=== PATIENT | male | born 1945 | race African-American/Black ===

== ENCOUNTER 2023-07-14 09:04 | Inpatient (IN) | payer BC, MEDICARE, OTHER ==
[2023-07-14 09:49] LABS: #Monocytes 0.3 thou/uL (0.11-0.59); #Neutrophils 2.9 thou/uL (1.40-6.50); %Basophils 0.2 % (0.0-1.0); %Eosinophils 0.2 % (0.0-10.0); %Lymphocytes 21.4 % (21.0-51.0); %Monocytes 7.7 % (0.0-10.0); %Neutrophils 70.3 % (42.0-75.0); Hematocrit 38.6 % (42.0-52.0); Mean Corpuscular HGB CONC 33.7 g/dL (32.0-36.0); Mean Corpuscular Hemoglobin 32.8 pg (27.0-31.0); Mean Corpuscular Volume 97.5 fl (78.0-98.0); Platelet Count 227 10x3/uL (130-400); RBC Distribution Width 12.2 % (11.5-14.5); Red Blood Cell (RBC) Count 3.96 mill/uL (4.70-6.10); White Blood Cell (WBC) Count 4.2 10x3/uL (4.8-10.8)
[2023-07-14 10:07] LABS: Bacteria/HPF None Seen HPF (None Seen); Bilirubin Negative (Negative); Blood, Urine Negative (Negative); CAUTI Indications for Culture Alt mental st,lethar; Clarity Clear (Clear); Glucose, Urine (Dipstick) Greater than 1000 mg/dL (Negative); Ketone, Urine 10 mg/dL (Negative); Leukocyte Negative Leu/uL (Negative); Nitrite Negative (Negative); Protein, Urine (Dipstick) Negative (Neg-Trace); RBC/HPF None Seen HPF (0-3); Specific Gravity, Urine 1.033 (1.002-1.036); Squamous Epithelial None Seen HPF (0-3); Urobilinogen Normal mg/dL (Less than 2); WBC/HPF 0-3 HPF (0-3); pH, Urine 6.5 (5.0-9.0)
[2023-07-14 10:08] LABS: Urine Culture Reflex No No
[2023-07-14 10:18] LABS: ALT (SGPT) 24 U/L (8-55); AST (SGOT) 22 U/L (5-34); Albumin 4.4 g/dL (3.4-4.8); Alkaline Phosphatase 93 U/L (40-110); Anion Gap 16 mmol/L (10-20); BUN (Urea Nitrogen) 23 mg/dL (8.4-25.7); Bilirubin, Total 0.8 mg/dL (0.2-1.2); Calc. Creatinine Clearance 0 mL/min (70-130); Calcium 9.4 mg/dL (7.8-10.44); Carbon Dioxide 25 mmol/L (23-31); Chloride 96 mmol/L (98-107); Estimated GFR 49; Globulin 2.6 g/dL (2.4-3.5); Potassium 4.9 mmol/L (3.5-5.1); Sodium 132 mmol/L (136-145); Troponin I 0.078 ng/mL (< 0.028)
[2023-07-14 10:25] LABS: Glucose 678 mg/dL (83-110)
[2023-07-14 10:33] LABS: Analyzer IN Cardio ER; Calcium, Ionized (venous) 1.18 mmol/L (1.16-1.32); Chloride (VBG) 95 mmol/L (98-106); Hematocrit-VBG 42 % (42.0-52.0); Hemoglobin (Hb) 14.3 g/dL (12.6-17.4); Potassium (VBG) 4.66 mmol/L (3.70-5.30); Sodium 135 mmol/L (133-146); pH (venous) 7.368 (7.32-7.43)
[2023-07-14 11:25] LABS: SARS-CoV-2 NAA Rapid Test Not Detected (NotDetected)
[2023-07-14] MEDS ORDERED: Insulin Regular 300 UNITS/3 ML VIAL ONE (11:43)
[2023-07-14] MEDS ORDERED: Dextrose 5% in Water 1,000 ML IV PRN (14:34)
[2023-07-14] MEDS ORDERED: Dextrose 50% Abboject 50 ML SYRINGE SLOW IVP PRN (14:34)
[2023-07-14] MEDS ORDERED: Glucagon 1 MG/ML KIT IM PRN (14:34)
[2023-07-14] MEDS ORDERED: Ondansetron PF 4 MG/2 ML Vial IVP PRN (14:36)
[2023-07-14] MEDS ORDERED: Acetaminophen 325 MG TAB PO PRN (14:36)
[2023-07-14] MEDS: Heparin 5,000 UNITS/ML VIAL SC SCH ×2 (18:32→21:34)
[2023-07-14] MEDS: Sodium Chloride 0.9% 1,000 ML IV SCH (18:33)
[2023-07-14] MEDS ORDERED: Insulin Glargine 30 UNITS/0.3 ML VIAL SC SCH (21:00)
[2023-07-14] MEDS: HumaLOG 300 UNITS/3 ML VIAL SC PRN (21:34)
[2023-07-14 23:06] VITALS: BMI 14.6
[2023-07-15 05:34] LABS: #Monocytes 0.4 thou/uL (0.11-0.59); #Neutrophils 2.4 thou/uL (1.40-6.50); %Basophils 0.4 % (0.0-1.0); %Eosinophils 0.8 % (0.0-10.0); %Lymphocytes 40.1 % (21.0-51.0); %Monocytes 8.1 % (0.0-10.0); %Neutrophils 50.4 % (42.0-75.0); Hemoglobin 11.3 g/dL (14.0-18.0); Mean Corpuscular HGB CONC 34.2 g/dL (32.0-36.0); Mean Corpuscular Hemoglobin 32.2 pg (27.0-31.0); Mean Platelet Volume 9.8 fL (7.4-10.4); Platelet Count 209 10x3/uL (130-400); RBC Distribution Width 11.7 % (11.5-14.5); Red Blood Cell (RBC) Count 3.51 mill/uL (4.70-6.10); White Blood Cell (WBC) Count 4.7 10x3/uL (4.8-10.8)
[2023-07-15 05:58] LABS: Anion Gap 10 mmol/L (10-20); BUN (Urea Nitrogen) 12 mg/dL (8.4-25.7); Calc. Creatinine Clearance 60 mL/min (70-130); Calcium 8.7 mg/dL (7.8-10.44); Carbon Dioxide 26 mmol/L (23-31); Chloride 102 mmol/L (98-107); Estimated GFR 92; Potassium 3.3 mmol/L (3.5-5.1); Sodium 135 mmol/L (136-145)
[2023-07-15 06:01] LABS: Glucose 45 mg/dL (83-110)
[2023-07-15] MEDS: Sodium Chloride 0.9% 1,000 ML IV SCH (06:06)
[2023-07-15] MEDS: Heparin 5,000 UNITS/ML VIAL SC SCH ×3 (08:20→20:37)
[2023-07-15] MEDS ORDERED: Potassium Chloride 20 MEQ TAB PO SCH (10:00)
[2023-07-15 10:01] LABS: Hemoglobin A1c Greater than 14.0 % (4.0-6.0)
[2023-07-15] MEDS: HumaLOG 300 UNITS/3 ML VIAL SC PRN ×2 (11:26→17:04)
[2023-07-15] MEDS ORDERED: Insulin Glargine 30 UNITS/0.3 ML VIAL SC SCH (21:00)
[2023-07-16 06:04] LABS: #Monocytes 0.5 thou/uL (0.11-0.59); #Neutrophils 1.8 thou/uL (1.40-6.50); %Basophils 0.5 % (0.0-1.0); %Eosinophils 0.5 % (0.0-10.0); %Lymphocytes 42.9 % (21.0-51.0); %Monocytes 11.3 % (0.0-10.0); %Neutrophils 44.3 % (42.0-75.0); Hematocrit 35.8 % (42.0-52.0); Hemoglobin 12.2 g/dL (14.0-18.0); Mean Corpuscular HGB CONC 34.1 g/dL (32.0-36.0); Mean Corpuscular Hemoglobin 32.8 pg (27.0-31.0); Mean Corpuscular Volume 96.2 fl (78.0-98.0); Mean Platelet Volume 9.8 fL (7.4-10.4); Platelet Count 219 10x3/uL (130-400); RBC Distribution Width 11.9 % (11.5-14.5); Red Blood Cell (RBC) Count 3.72 mill/uL (4.70-6.10); White Blood Cell (WBC) Count 4.1 10x3/uL (4.8-10.8)
[2023-07-16 06:29] LABS: Anion Gap 14 mmol/L (10-20); BUN (Urea Nitrogen) 10 mg/dL (8.4-25.7); Calc. Creatinine Clearance 52 mL/min (70-130); Calcium 8.7 mg/dL (7.8-10.44); Carbon Dioxide 25 mmol/L (23-31); Chloride 99 mmol/L (98-107); Estimated GFR 86; Glucose 182 mg/dL (83-110); Potassium 3.8 mmol/L (3.5-5.1); Sodium 134 mmol/L (136-145)
[2023-07-16] MEDS: Heparin 5,000 UNITS/ML VIAL SC SCH ×3 (09:28→20:21)
[2023-07-16] MEDS: HumaLOG 300 UNITS/3 ML VIAL SC PRN ×2 (12:56→17:07)
[2023-07-16] MEDS ORDERED: HumaLOG 300 UNITS/3 ML VIAL SC PRN (20:22)
[2023-07-16] MEDS ORDERED: Insulin Glargine 30 UNITS/0.3 ML VIAL SC SCH (21:00)
[2023-07-17] MEDS: Heparin 5,000 UNITS/ML VIAL SC SCH ×3 (09:11→20:38)
[2023-07-17] MEDS: Lisinopril 5 MG TAB PO SCH (09:11)
[2023-07-17] MEDS: HumaLOG 300 UNITS/3 ML VIAL SC PRN (17:40)
[2023-07-17] MEDS: Insulin Glargine 30 UNITS/0.3 ML VIAL SC SCH (20:45)
[2023-07-17] MEDS ORDERED: Amlodipine 5 MG TAB PO SCH (21:00)
[2023-07-17] MEDS ORDERED: Insulin Glargine 30 UNITS/0.3 ML VIAL SC SCH (21:00)
[2023-07-18] MEDS: HumaLOG 300 UNITS/3 ML VIAL SC PRN ×2 (05:58→17:23)
[2023-07-18] MEDS: Lisinopril 5 MG TAB PO SCH (07:56)
[2023-07-18] MEDS: Amlodipine 5 MG TAB PO SCH (08:06)
[2023-07-18] MEDS: Heparin 5,000 UNITS/ML VIAL SC SCH ×3 (08:10→20:17)
[2023-07-18] MEDS: Insulin Glargine 30 UNITS/0.3 ML VIAL SC SCH (20:18)
[2023-07-19] MEDS: HumaLOG 300 UNITS/3 ML VIAL SC PRN (03:40)
[2023-07-19] MEDS: Heparin 5,000 UNITS/ML VIAL SC SCH (08:55)
[2023-07-19] MEDS: Amlodipine 5 MG TAB PO SCH (08:55)
[2023-07-19] MEDS: Lisinopril 5 MG TAB PO SCH (08:55)
[2023-07-19 12:19] VITALS: BP 106/63; TEMP 98.4
== END 2023-07-19 16:26 | DRG 637 ==
LOC: ERS 09:04 → ERHOLD 14:17 → T4-A 18:04
PROVIDERS: ADMIT Internal Medicine; ATTEND Emergency Medicine
PROC: 4A043R1 Measurement of Venous Saturation, Peripheral, Percutaneous Approach (ICD-10-PCS; principal; 2023-07-14)
DX: E11.65 Type 2 diabetes mellitus with hyperglycemia (principal); G93.41 Metabolic encephalopathy; N17.9 Acute kidney failure, unspecified; E87.1 Hypo-osmolality and hyponatremia; Z51.5 Encounter for palliative care; E78.5 Hyperlipidemia, unspecified; Z87.891 Personal history of nicotine dependence; Z88.0 Allergy status to penicillin; Z11.52 Encounter for screening for COVID-19; Z79.4 Long term (current) use of insulin; Z79.01 Long term (current) use of anticoagulants; E87.6 Hypokalemia; N18.2 Chronic kidney disease, stage 2 (mild); E11.22 Type 2 diabetes mellitus with diabetic chronic kidney disease; I12.9 Hypertensive chronic kidney disease with stage 1 through stage 4 chronic kidney disease, or unspecified chronic kidney disease
CPT/HCPCS: 36415; 36416; 70450; 71045; 80048; 80053; 81001; 82010; 82805; 83036; 83930; 84484; 85025; 87040; 93005; 96361; 96374; J1644; J1815; J7050

== ENCOUNTER 2023-08-26 09:29 | Emergency (ER) | payer MEDICARE ==
[2023-08-26 10:10] LABS: Bacteria/HPF None Seen HPF (None Seen); Bilirubin Negative (Negative); Blood, Urine Negative (Negative); CAUTI Indications for Culture Dysuria,urgency,freq; Clarity Clear (Clear); Glucose, Urine (Dipstick) >=1000 mg/dL (Negative); Ketone, Urine Negative (Negative); Leukocyte Negative Leu/uL (Negative); Nitrite Negative (Negative); Protein, Urine (Dipstick) 20 mg/dL (Neg-Trace); RBC/HPF 0-3 HPF (0-3); Specific Gravity, Urine 1.014 (1.002-1.036); Squamous Epithelial None Seen HPF (0-3); Urobilinogen Normal mg/dL (Less than 2); WBC/HPF 0-3 HPF (0-3)
[2023-08-26 10:28] LABS: Hematocrit 41.2 % (42.0-52.0); Hemoglobin 13.6 g/dL (14.0-18.0); Manual Diff?? YES; Mean Corpuscular Hemoglobin 32.4 pg (27.0-31.0); Mean Corpuscular Volume 98.1 fl (78.0-98.0); Platelet Count 231 10x3/uL (130-400); RBC Distribution Width 11.9 % (11.5-14.5); White Blood Cell (WBC) Count 4.6 10x3/uL (4.8-10.8)
[2023-08-26 10:36] LABS: Delete Auto Diff?? YES
[2023-08-26 10:39] LABS: Urine Culture Reflex No No
[2023-08-26 10:53] LABS: Band 4 % (5-11); Lymphocytes 25 % (21-51); Monocytes 1 % (0-10); Neutrophil 68 % (42-75); Platelet Adequacy Comment Platelets Normal; Polychromasia SLIGHT = 2-3 cells (100X) (0-2/hpf); Reactive Lymphocytes 2 % (0-10)
[2023-08-26 10:56] LABS: ALT (SGPT) 18 U/L (8-55); AST (SGOT) 19 U/L (5-34); Albumin 3.6 g/dL (3.4-4.8); Alkaline Phosphatase 81 U/L (40-110); Anion Gap 13 mmol/L (10-20); BUN (Urea Nitrogen) 11 mg/dL (8.4-25.7); Bilirubin, Total 0.5 mg/dL (0.2-1.2); Calc. Creatinine Clearance 0 mL/min (70-130); Calcium 8.5 mg/dL (7.8-10.44); Carbon Dioxide 24 mmol/L (23-31); Chloride 102 mmol/L (98-107); Estimated GFR 87; Globulin 3.4 g/dL (2.4-3.5); Glucose 267 mg/dL (83-110); Magnesium 1.7 mg/dL (1.6-2.6); Potassium 3.6 mmol/L (3.5-5.1); Sodium 135 mmol/L (136-145)
[2023-08-26 10:58] LABS: Troponin I 0.017 ng/mL (< 0.028)
[2023-08-26 11:12] LABS: SARS-CoV-2 NAA Rapid Test DETECTED (NotDetected)
== END 2023-08-26 12:26 | disposition home or self-care (01) ==
LOC: ERS 09:29
DX: U07.1 COVID-19 (principal); E11.9 Type 2 diabetes mellitus without complications; Z87.891 Personal history of nicotine dependence
CPT/HCPCS: 0240U; 71045; 80053; 81001; 83605; 83735; 84484; 85025; 93005; 96360; 99285; 36415

== ENCOUNTER 2024-07-25 11:57 | Emergency (ER) | payer MEDICARE ==
[2024-07-25] MEDS ORDERED: cefTRIAXone (ROCEPHIN) 1 GM VIAL ONE (15:49)
[2024-08-04 15:12] LABS: %Lymphocytes 35.1 % (21.0-51.0); %Neutrophils 52.5 % (42.0-75.0); Hematocrit 41.8 % (42.0-52.0); Hemoglobin 13.4 g/dL (14.0-18.0); Manual Diff?? NO; Mean Corpuscular HGB CONC 32.1 g/dL (32.0-36.0); Mean Corpuscular Hemoglobin 30.7 pg (27.0-31.0); Mean Corpuscular Volume 95.7 fL (78.0-98.0); Mean Platelet Volume 9.7 fL (7.4-10.4); Platelet Count 244 10x3/uL (130-400); RBC Distribution Width 12.9 % (11.5-14.5); Red Blood Cell (RBC) Count 4.37 mill/uL (4.70-6.10)
[2024-08-04 15:13] LABS: #Basophils 0.04 10x3/uL (0.0-0.2); %Basophils 0.6 % (0.0-1.0); %Eosinophils 1.4 % (0.0-10.0)
[2024-08-04 15:14] LABS: Sodium 138 mmol/L (136-145)
[2024-08-04 15:15] LABS: Albumin 3.9 g/dL (3.4-4.8); Anion Gap 18 mmol/L (10-20); BUN (Urea Nitrogen) 20 mg/dL (8.4-25.7); Bilirubin, Total 0.3 mg/dL (0.2-1.2); Calc. Creatinine Clearance 0 mL/min (70-130); Calcium 9.6 mg/dL (7.6-10.4); Carbon Dioxide 21 mmol/L (23-31); Chloride 103 mmol/L (98-107); Estimated GFR 86; Globulin 3.8 g/dL (2.4-3.5); Glucose 199 mg/dL (83-110); Potassium 4.2 mmol/L (3.5-5.1); Protein, Total 7.7 g/dL (5.8-8.1)
[2024-08-04 15:16] LABS: ALT (SGPT) 13 U/L (8-55); AST (SGOT) 14 U/L (5-34); Alkaline Phosphatase 71 U/L (40-110)
[2024-08-04 15:18] LABS: Clarity Extra Turbid (Clear); Leukocyte 250 Leu/uL (Negative)
[2024-08-04 15:19] LABS: Bilirubin Negative (Negative); Blood, Urine Negative (Negative); CAUTI Indications for Culture Dysuria,urgency,freq; Glucose, Urine (Dipstick) Negative (Negative); Ketone, Urine Negative (Negative); Nitrite Negative (Negative); Protein, Urine (Dipstick) 30 mg/dL (Neg-Trace); RBC/HPF None Seen HPF (0-3); Urobilinogen 3 mg/dL (Less than 2); WBC/HPF None Seen HPF (0-3)
[2024-08-04 15:20] LABS: Bacteria/HPF 1+ HPF (None Seen); Squamous Epithelial 0-3 HPF (0-3); Yeast-Budding Rare HPF (None Seen)
[2024-08-04 15:21] LABS: Calcium Oxalate Crystals 2+ HPF (None Seen); Urine Culture Reflex No No
== END 2024-07-25 18:40 | disposition home or self-care (01) ==
LOC: ERS 11:57
DX: R56.9 Unspecified convulsions (principal); N39.0 Urinary tract infection, site not specified; L97.529 Non-pressure chronic ulcer of other part of left foot with unspecified severity; L03.032 Cellulitis of left toe; E11.9 Type 2 diabetes mellitus without complications; E78.5 Hyperlipidemia, unspecified; I10 Essential (primary) hypertension; Z79.4 Long term (current) use of insulin; Z87.891 Personal history of nicotine dependence; Z79.899 Other long term (current) drug therapy
CPT/HCPCS: 70450; 93005; J0696; 96374

== ENCOUNTER 2024-08-18 09:36 | Inpatient (IN) | payer MEDICARE ==
[2024-08-18 10:19] LABS: #Basophils Less than 0.03 10x3/uL (0.0-0.2); %Basophils 0.3 % (0.0-1.0); %Eosinophils 0.9 % (0.0-10.0); %Lymphocytes 25.8 % (21.0-51.0); %Monocytes 10.6 % (0.0-10.0); %Neutrophils 62.2 % (42.0-75.0); Hematocrit 41.5 % (42.0-52.0); Hemoglobin 13.6 g/dL (14.0-18.0); Mean Corpuscular HGB CONC 32.8 g/dL (32.0-36.0); Mean Corpuscular Hemoglobin 31.3 pg (27.0-31.0); Mean Corpuscular Volume 95.4 fL (78.0-98.0); Mean Platelet Volume 9.5 fL (7.4-10.4); Platelet Count 227 10x3/uL (130-400); RBC Distribution Width 13.2 % (11.5-14.5); Red Blood Cell (RBC) Count 4.35 mill/uL (4.70-6.10)
[2024-08-18 10:47] LABS: ALT (SGPT) 14 U/L (8-55); AST (SGOT) 18 U/L (5-34); Albumin 3.9 g/dL (3.4-4.8); Alkaline Phosphatase 74 U/L (40-110); Anion Gap 17 mmol/L (10-20); BUN (Urea Nitrogen) 21 mg/dL (8.4-25.7); Bilirubin, Total 0.4 mg/dL (0.2-1.2); Calc. Creatinine Clearance 0 mL/min (70-130); Calcium 9.9 mg/dL (7.8-10.44); Carbon Dioxide 22 mmol/L (23-31); Chloride 105 mmol/L (98-107); Estimated GFR 91; Globulin 3.8 g/dL (2.4-3.5); Glucose 164 mg/dL (83-110); Potassium 3.9 mmol/L (3.5-5.1); Protein, Total 7.7 g/dL (5.8-8.1); Sodium 140 mmol/L (136-145)
[2024-08-18] MEDS ORDERED: Cefepime 2 GM VIAL ONE (11:12)
[2024-08-18] MEDS ORDERED: Sodium Chloride 0.9% 100 ML ONE (11:12)
[2024-08-18] MEDS ORDERED: Acetaminophen 500 MG TAB ONE (11:59)
[2024-08-18] MEDS ORDERED: Senokot S 8.6-50 MG TAB PO PRN (12:04)
[2024-08-18] MEDS ORDERED: Glucagon 1 MG/ML KIT IM PRN (12:42)
[2024-08-18] MEDS ORDERED: Dextrose 50% Abboject 50 ML SYRINGE SLOW IVP PRN (12:42)
[2024-08-18] MEDS ORDERED: Dextrose 5% in Water 1,000 ML IV PRN (12:42)
[2024-08-18] MEDS: Vancomycin (BATCH) 1.75 GM in Premix 1 BAG IVPB SCH (13:43)
[2024-08-18 13:44] VITALS: BMI 17.6
[2024-08-18] MEDS: Sodium Chloride 0.9% 1,000 ML IV SCH (14:24)
[2024-08-18] MEDS: Famotidine 20 MG TAB PO SCH (21:23)
[2024-08-18] MEDS: Rosuvastatin 20 MG TAB PO SCH (21:24)
[2024-08-18] MEDS: Cefepime 2 GM in Sodium Chloride 0.9% 100 ML IVPB SCH (23:40)
[2024-08-19] MEDS: Vancomycin 1 GM in Premix 1 BAG IVPB SCH (00:11)
[2024-08-19 04:38] LABS: #Basophils 0.04 10x3/uL (0.0-0.2); %Basophils 0.8 % (0.0-1.0); %Eosinophils 1.8 % (0.0-10.0); %Lymphocytes 33.5 % (21.0-51.0); %Monocytes 11.7 % (0.0-10.0); Hematocrit 35.9 % (42.0-52.0); Hemoglobin 11.7 g/dL (14.0-18.0); Mean Corpuscular HGB CONC 32.6 g/dL (32.0-36.0); Mean Platelet Volume 9.8 fL (7.4-10.4); Platelet Count 235 10x3/uL (130-400); RBC Distribution Width 13.2 % (11.5-14.5); Red Blood Cell (RBC) Count 3.78 mill/uL (4.70-6.10)
[2024-08-19 05:01] LABS: Anion Gap 14 mmol/L (10-20); BUN (Urea Nitrogen) 10 mg/dL (8.4-25.7); Calc. Creatinine Clearance 86 mL/min (70-130); Calcium 8.8 mg/dL (7.8-10.44); Carbon Dioxide 24 mmol/L (23-31); Chloride 102 mmol/L (98-107); Estimated GFR 96; Glucose 165 mg/dL (83-110); Potassium 3.4 mmol/L (3.5-5.1); Sodium 137 mmol/L (136-145)
[2024-08-19 05:25] LABS: Vancomycin, Random 18.9 ug/mL (See Comment)
[2024-08-19] MEDS: Insulin Lispro 100 UNIT/ML 10 ML VIAL SC PRN (07:26)
[2024-08-19] MEDS: Enoxaparin 40 MG (0.4 mL) SYRINGE SC SCH (08:41)
[2024-08-19] MEDS: Ezetimibe 10 MG TAB PO SCH (08:41)
[2024-08-19] MEDS: FLUoxetine HCl 20 MG CAP PO SCH (08:41)
[2024-08-19] MEDS: Amlodipine 5 MG TAB PO SCH (08:41)
[2024-08-19] MEDS: Insulin Glargine 30 UNITS/0.3 ML VIAL SC SCH ×2 (08:42→21:08)
[2024-08-19] MEDS: Potassium Chloride 20 MEQ TAB PO SCH (09:07)
[2024-08-19] MEDS: Acetaminophen 325 MG TAB PO PRN (09:07)
[2024-08-19] MEDS: Divalproex Sodium 125 mg Sprinkle Capsule PO SCH (12:07)
[2024-08-19] MEDS: VANCOMYCIN 1.25 GM/250 ML BAG 1.25 GM in Premix 1 BAG IVPB SCH (12:51)
[2024-08-20 05:10] LABS: #Basophils 0.04 10x3/uL (0.0-0.2); %Basophils 0.9 % (0.0-1.0); %Eosinophils 2.1 % (0.0-10.0); %Lymphocytes 31.4 % (21.0-51.0); %Monocytes 11.2 % (0.0-10.0); %Neutrophils 54.4 % (42.0-75.0); Hematocrit 41.1 % (42.0-52.0); Hemoglobin 13.2 g/dL (14.0-18.0); Mean Corpuscular HGB CONC 32.1 g/dL (32.0-36.0); Mean Corpuscular Hemoglobin 30.7 pg (27.0-31.0); Mean Corpuscular Volume 95.6 fL (78.0-98.0); Mean Platelet Volume 10.2 fL (7.4-10.4); Platelet Count 226 10x3/uL (130-400); RBC Distribution Width 13.2 % (11.5-14.5)
[2024-08-20 05:32] LABS: Anion Gap 17 mmol/L (10-20); BUN (Urea Nitrogen) 9 mg/dL (8.4-25.7); Calc. Creatinine Clearance 85 mL/min (70-130); Calcium 9.2 mg/dL (7.8-10.44); Carbon Dioxide 21 mmol/L (23-31); Chloride 104 mmol/L (98-107); Estimated GFR 96; Glucose 128 mg/dL (83-110); Potassium 3.8 mmol/L (3.5-5.1); Sodium 138 mmol/L (136-145)
[2024-08-20] MEDS: Saccharomyces boulardii 250 MG CAP PO SCH (10:21)
[2024-08-20] MEDS: Multivitamin W/ Minerals 1 TAB PO SCH (10:21)
[2024-08-20] MEDS: Aspirin Chewable 81 MG TAB PO SCH (10:22)
[2024-08-20] MEDS: Acidophilus Lactiobac CAPSULE PO SCH (11:30)
[2024-08-20 15:06] VITALS: BMI 17.6
[2024-08-20] MEDS: Insulin Lispro 100 UNIT/ML 10 ML VIAL SC PRN (21:48)
[2024-08-21 05:02] LABS: #Basophils 0.04 10x3/uL (0.0-0.2); %Basophils 0.9 % (0.0-1.0); %Eosinophils 2.3 % (0.0-10.0); %Lymphocytes 33.4 % (21.0-51.0); %Monocytes 13.5 % (0.0-10.0); %Neutrophils 49.7 % (42.0-75.0); Hematocrit 38.6 % (42.0-52.0); Hemoglobin 12.9 g/dL (14.0-18.0); Mean Corpuscular HGB CONC 33.4 g/dL (32.0-36.0); Mean Corpuscular Hemoglobin 30.7 pg (27.0-31.0); Mean Corpuscular Volume 91.9 fL (78.0-98.0); Mean Platelet Volume 9.6 fL (7.4-10.4); Platelet Count 226 10x3/uL (130-400); RBC Distribution Width 12.8 % (11.5-14.5)
[2024-08-21 05:24] LABS: Anion Gap 11 mmol/L (10-20); BUN (Urea Nitrogen) 7 mg/dL (8.4-25.7); Calc. Creatinine Clearance 94 mL/min (70-130); Calcium 9.1 mg/dL (7.8-10.44); Carbon Dioxide 22 mmol/L (23-31); Chloride 104 mmol/L (98-107); Estimated GFR 99; Glucose 92 mg/dL (83-110); Potassium 3.4 mmol/L (3.5-5.1); Sodium 134 mmol/L (136-145)
[2024-08-21] MEDS ORDERED: CADEXOMER IODINE TOP SCH (09:00)
[2024-08-21] MEDS ORDERED: SODIUM HYPOCHLORITE TOP SCH (09:00)
[2024-08-21] MEDS: Saccharomyces boulardii 250 MG CAP PO SCH (09:25)
[2024-08-21] MEDS: Potassium Chloride 20 MEQ TAB PO SCH (09:26)
[2024-08-22 05:17] LABS: #Basophils 0.04 10x3/uL (0.0-0.2); %Lymphocytes 36.8 % (21.0-51.0); %Monocytes 13.8 % (0.0-10.0); %Neutrophils 46.2 % (42.0-75.0); Hematocrit 40.5 % (42.0-52.0); Hemoglobin 13.3 g/dL (14.0-18.0); Mean Corpuscular HGB CONC 32.8 g/dL (32.0-36.0); Mean Corpuscular Hemoglobin 30.7 pg (27.0-31.0); Mean Corpuscular Volume 93.5 fL (78.0-98.0); Mean Platelet Volume 9.4 fL (7.4-10.4); Platelet Count 217 10x3/uL (130-400); RBC Distribution Width 12.8 % (11.5-14.5); Red Blood Cell (RBC) Count 4.33 mill/uL (4.70-6.10)
[2024-08-22 05:26] LABS: Vancomycin, Random 30.4 ug/mL (See Comment)
[2024-08-22 05:30] LABS: Anion Gap 13 mmol/L (10-20); BUN (Urea Nitrogen) 13 mg/dL (8.4-25.7); Calc. Creatinine Clearance 86 mL/min (70-130); Calcium 8.9 mg/dL (7.8-10.44); Carbon Dioxide 20 mmol/L (23-31); Chloride 105 mmol/L (98-107); Estimated GFR 96; Glucose 151 mg/dL (83-110); Potassium 4.3 mmol/L (3.5-5.1); Sodium 134 mmol/L (136-145)
[2024-08-22] MEDS ORDERED: CADEXOMER IODINE TOP SCH (09:00)
[2024-08-22] MEDS ORDERED: SODIUM HYPOCHLORITE TOP SCH (09:00)
[2024-08-22] MEDS: Vancomycin 1 GM in Premix 1 BAG IVPB SCH (12:08)
[2024-08-23 08:39] LABS: #Basophils 0.03 10x3/uL (0.0-0.2); %Basophils 0.7 % (0.0-1.0); %Eosinophils 2.8 % (0.0-10.0); %Lymphocytes 40.1 % (21.0-51.0); %Monocytes 14.2 % (0.0-10.0); Hematocrit 37.6 % (42.0-52.0); Hemoglobin 12.5 g/dL (14.0-18.0); Mean Corpuscular HGB CONC 33.2 g/dL (32.0-36.0); Mean Corpuscular Hemoglobin 31.1 pg (27.0-31.0); Mean Corpuscular Volume 93.5 fL (78.0-98.0); Mean Platelet Volume 9.8 fL (7.4-10.4); Platelet Count 223 10x3/uL (130-400); RBC Distribution Width 13.1 % (11.5-14.5); Red Blood Cell (RBC) Count 4.02 mill/uL (4.70-6.10)
[2024-08-23 09:10] LABS: Anion Gap 11 mmol/L (10-20); BUN (Urea Nitrogen) 18 mg/dL (8.4-25.7); Calc. Creatinine Clearance 85 mL/min (70-130); Calcium 9.4 mg/dL (7.8-10.44); Carbon Dioxide 26 mmol/L (23-31); Chloride 103 mmol/L (98-107); Estimated GFR 96; Glucose 103 mg/dL (83-110); Potassium 4.2 mmol/L (3.5-5.1); Sodium 136 mmol/L (136-145)
[2024-08-23] MEDS: Linezolid 600 MG in Premix 1 BAG IVPB SCH (13:33)
[2024-08-24 05:30] LABS: #Basophils 0.04 10x3/uL (0.0-0.2); %Basophils 0.8 % (0.0-1.0); %Eosinophils 3.1 % (0.0-10.0); %Lymphocytes 28.9 % (21.0-51.0); Hematocrit 39.5 % (42.0-52.0); Hemoglobin 12.9 g/dL (14.0-18.0); Mean Corpuscular HGB CONC 32.7 g/dL (32.0-36.0); Mean Corpuscular Hemoglobin 30.9 pg (27.0-31.0); Mean Corpuscular Volume 94.7 fL (78.0-98.0); Mean Platelet Volume 10.1 fL (7.4-10.4); Platelet Count 202 10x3/uL (130-400); RBC Distribution Width 13.3 % (11.5-14.5); Red Blood Cell (RBC) Count 4.17 mill/uL (4.70-6.10)
[2024-08-24 05:53] LABS: Anion Gap 15 mmol/L (10-20); BUN (Urea Nitrogen) 16 mg/dL (8.4-25.7); Calc. Creatinine Clearance 81 mL/min (70-130); Calcium 9.3 mg/dL (7.8-10.44); Carbon Dioxide 23 mmol/L (23-31); Chloride 101 mmol/L (98-107); Estimated GFR 94; Glucose 166 mg/dL (83-110); Sodium 135 mmol/L (136-145)
[2024-08-24 13:32] VITALS: BP 135/75; TEMP 98.1
[2024-08-24] MEDS ORDERED: Linezolid 600 MG TAB PO SCH (21:00)
[2024-08-25] MEDS ORDERED: LevoFLOXacin 750 MG TAB PO SCH (06:00)
== END 2024-08-24 13:15 | disposition home or self-care (01) | DRG 638 ==
LOC: ERS 09:36 → MSONC 13:24
PROVIDERS: ADMIT Family Medicine; ATTEND Internal Medicine
DX: E11.69 Type 2 diabetes mellitus with other specified complication (principal); M86.9 Osteomyelitis, unspecified; E78.5 Hyperlipidemia, unspecified; F32.A Depression, unspecified; Z88.0 Allergy status to penicillin; F41.9 Anxiety disorder, unspecified; Z87.891 Personal history of nicotine dependence; Z79.82 Long term (current) use of aspirin; Z79.899 Other long term (current) drug therapy; Z79.84 Long term (current) use of oral hypoglycemic drugs; I12.9 Hypertensive chronic kidney disease with stage 1 through stage 4 chronic kidney disease, or unspecified chronic kidney disease; E11.22 Type 2 diabetes mellitus with diabetic chronic kidney disease; N18.9 Chronic kidney disease, unspecified; E11.51 Type 2 diabetes mellitus with diabetic peripheral angiopathy without gangrene; Z79.4 Long term (current) use of insulin; L60.3 Nail dystrophy
CPT/HCPCS: 36415; 36416; 75635; 80048; 80053; 80202; 83605; 85025; 86141; 87040; 87070; 87077; 87186; 87205; 93923; 96365; 96375; 97139; J0692; J1650; J1815; J2020; J3370; J7030

== ENCOUNTER 2024-09-23 17:20 | Inpatient (IN) | payer MEDICARE ==
[~2024-09-23 17:20] MED LIST: Iopamidol-370 76% 500 ML MDV (1 ML CHARGE) ONE
[2024-09-23 17:59] LABS: #Basophils Less than 0.03 10x3/uL (0.0-0.2); #Eosinophils Less than 0.03 10x3/uL (0.0-0.7); %Basophils 0.1 % (0.0-1.0); %Lymphocytes 5.5 % (21.0-51.0); %Monocytes 9.5 % (0.0-10.0); %Neutrophils 84.1 % (42.0-75.0); Hematocrit 36.2 % (42.0-52.0); Hemoglobin 11.9 g/dL (14.0-18.0); Mean Corpuscular HGB CONC 32.9 g/dL (32.0-36.0); Mean Corpuscular Hemoglobin 30.7 pg (27.0-31.0); Mean Corpuscular Volume 93.5 fL (78.0-98.0); Mean Platelet Volume 10.9 fL (7.4-10.4); Platelet Count 152 10x3/uL (130-400); RBC Distribution Width 13.3 % (11.5-14.5); Red Blood Cell (RBC) Count 3.87 mill/uL (4.70-6.10)
[2024-09-23 18:12] LABS: INR-International Normal Ratio 1.6; PTT 41.9 sec (22.9-36.1); Prothrombin Time 18.8 sec (12.0-14.7)
[2024-09-23 18:20] LABS: ALT (SGPT) 13 U/L (Less than 45); AST (SGOT) 25 U/L (11-34); Albumin 3.3 g/dL (3.1-4.5); Alkaline Phosphatase 57 U/L (40-110); Anion Gap 22 mmol/L (10-20); BUN (Urea Nitrogen) 20 mg/dL (8.4-25.7); Bilirubin, Total 1.2 mg/dL (0.3-1.2); Calc. Creatinine Clearance 0 mL/min (70-130); Calcium 8.9 mg/dL (7.8-10.44); Carbon Dioxide 20 mmol/L (23-31); Chloride 104 mmol/L (98-107); Estimated GFR 89; Globulin 3.6 g/dL (2.4-3.5); Glucose 70 mg/dL (83-110); Magnesium 1.7 mg/dL (1.6-2.6); Potassium 3.3 mmol/L (3.5-5.1); Protein, Total 6.9 g/dL (5.8-8.1); Sodium 143 mmol/L (136-145)
[2024-09-23 18:26] LABS: Troponin I 0.013 ng/mL (< 0.028)
[2024-09-23] MEDS ORDERED: Sodium Chloride 0.9% 100 ML ONE (18:42)
[2024-09-23] MEDS ORDERED: Cefepime 2 GM VIAL ONE (18:43)
[2024-09-23] MEDS ORDERED: Dextrose 10% in Water 250 ML ONE (19:10)
[2024-09-23 19:51] LABS: Bilirubin Negative (Negative); Blood, Urine Negative (Negative); CAUTI Indications for Culture Fever or rigors; Calcium Oxalate Crystals Rare HPF (None Seen); Clarity Turbid (Clear); Glucose, Urine (Dipstick) Normal (Negative); Ketone, Urine Negative (Negative); Leukocyte Negative Leu/uL (Negative); Nitrite Negative (Negative); Protein, Urine (Dipstick) 50 mg/dL (Neg-Trace); Specific Gravity, Urine 1.026 (1.002-1.036); Urobilinogen Normal mg/dL (Less than 2); pH, Urine 6.5 (5.0-9.0)
[2024-09-23 19:52] LABS: Bacteria/HPF Rare-Few HPF (None Seen); Squamous Epithelial 0-3 HPF (0-3)
[2024-09-23 19:53] LABS: Urine Culture Reflex No No
[2024-09-23] MEDS ORDERED: Ondansetron PF 4 MG/2 ML Vial ONE (20:16)
[2024-09-23 23:10] VITALS: BMI 18.1
[2024-09-24] MEDS: Vancomycin (BATCH) 1.5 GM in Premix 1 BAG IVPB SCH (00:06)
[2024-09-24] MEDS ORDERED: Glucagon 1 MG/ML KIT IM PRN (02:11)
[2024-09-24] MEDS ORDERED: Dextrose 50% Abboject 50 ML SYRINGE SLOW IVP PRN (02:11)
[2024-09-24] MEDS ORDERED: Dextrose 5% in Water 1,000 ML IV PRN (02:11)
[2024-09-24] MEDS: Sodium Chloride 0.9% 1,000 ML IV SCH (03:00)
[2024-09-24] MEDS ORDERED: Cefepime 1 GM VIAL ONE (03:17)
[2024-09-24] MEDS ORDERED: Ondansetron PF 4 MG/2 ML Vial ONE ×2 (05:35→13:50)
[2024-09-24] MEDS: Cefepime 1 GM in Sodium Chloride 0.9% 100 ML IVPB SCH (05:35)
[2024-09-24] MEDS: Ondansetron PF 4 MG/2 ML Vial IVP PRN (05:39)
[2024-09-24 05:58] LABS: #Basophils Less than 0.03 10x3/uL (0.0-0.2); #Eosinophils Less than 0.03 10x3/uL (0.0-0.7); %Basophils 0.1 % (0.0-1.0); %Lymphocytes 5.6 % (21.0-51.0); %Neutrophils 82.3 % (42.0-75.0); Hematocrit 30.1 % (42.0-52.0); Hemoglobin 10.1 g/dL (14.0-18.0); Mean Corpuscular HGB CONC 33.6 g/dL (32.0-36.0); Mean Corpuscular Volume 92.3 fL (78.0-98.0); Mean Platelet Volume 10.3 fL (7.4-10.4); Platelet Count 122 10x3/uL (130-400); RBC Distribution Width 13.3 % (11.5-14.5); Red Blood Cell (RBC) Count 3.26 mill/uL (4.70-6.10)
[2024-09-24] MEDS ORDERED: metroNIDAZOLE 500 MG (100 mL) BAG ONE (06:17)
[2024-09-24 06:22] LABS: ALT (SGPT) 11 U/L (Less than 45); AST (SGOT) 23 U/L (11-34); Albumin 2.8 g/dL (3.1-4.5); Alkaline Phosphatase 47 U/L (40-110); Anion Gap 15 mmol/L (10-20); BUN (Urea Nitrogen) 15 mg/dL (8.4-25.7); Bilirubin, Total 0.9 mg/dL (0.3-1.2); Calc. Creatinine Clearance 75 mL/min (70-130); Calcium 8.9 mg/dL (7.8-10.44); Carbon Dioxide 22 mmol/L (23-31); Chloride 109 mmol/L (98-107); Estimated GFR 94; Globulin 3.4 g/dL (2.4-3.5); Glucose 85 mg/dL (83-110); Potassium 2.8 mmol/L (3.5-5.1); Protein, Total 6.2 g/dL (5.8-8.1); Sodium 143 mmol/L (136-145)
[2024-09-24] MEDS: metroNIDAZOLE 500 MG in Premix 1 BAG IVPB SCH (06:24)
[2024-09-24 06:29] LABS: Lactic Acid 4.58 mmol/L (0.50-2.20)
[2024-09-24] MEDS ORDERED: Electrolyte Replacement Protocol 1 EACH FS SCH (08:15)
[2024-09-24 08:54] LABS: Lactic Acid 2.73 mmol/L (0.50-2.20)
[2024-09-24] MEDS ORDERED: Famotidine/PF 20 mg/2ml Vial ONE (08:55)
[2024-09-24] MEDS ORDERED: Potassium Chloride 20 MEQ (100 mL) BAG ONE ×2 (08:55→10:44)
[2024-09-24] MEDS ORDERED: Enoxaparin 40 MG (0.4 mL) SYRINGE ONE (08:55)
[2024-09-24] MEDS ORDERED: Magnesium 2 GM/50 ML BAG (IN WATER) ONE (08:56)
[2024-09-24] MEDS: Potassium Chloride 20 MEQ in Premix 1 BAG IVPB SCH ×2 (09:05→21:11)
[2024-09-24] MEDS: Famotidine/PF 20 mg/2ml Vial SLOW IVP SCH (09:07)
[2024-09-24] MEDS: Enoxaparin 40 MG (0.4 mL) SYRINGE SC SCH (09:10)
[2024-09-24] MEDS: Magnesium 2 GM/50 ML(in water) 2 GM in Premix 1 BAG IVPB SCH (09:12)
[2024-09-24] MEDS ORDERED: PROPOFOL 20 ML ONE (12:03)
[2024-09-24] MEDS ORDERED: Lidocaine 1% PF 5 ML VIAL ONE (12:03)
[2024-09-24] MEDS ORDERED: Rocuronium Bromide 10 MG/ML (10ML VIAL) ONE (12:03)
[2024-09-24] MEDS ORDERED: fentaNYL PF 100 MCG/2 ML SYRINGE ONE (12:03)
[2024-09-24] MEDS ORDERED: Bupivacaine 0.25% HCL 30 ML VIAL ONE (12:08)
[2024-09-24] MEDS ORDERED: EPINEPHrine 1 MG/ML VIAL ONE (12:08)
[2024-09-24] MEDS ORDERED: PHENYLEPHRINE-NS 100 MCG/ML 10 ML SYRINGE ONE (12:56)
[2024-09-24] MEDS ORDERED: SUCCINYLCHOLINE/SOD CL,ISO/PF 200 MG/10 ML SYRINGE FS ONE (12:56)
[2024-09-24] MEDS ORDERED: Vasopressin 20 UNITS/ML VIAL ONE (13:12)
[2024-09-24] MEDS ORDERED: CEFAZOLIN 1 GM VIAL ONE (13:26)
[2024-09-24] MEDS ORDERED: Dexamethasone 20 MG/5 ML VIAL ONE (13:50)
[2024-09-24] MEDS ORDERED: SUGAMMADEX SODIUM 200 MG/2 ML VIAL ONE (14:23)
[2024-09-24] MEDS: Cefepime 2 GM in Sodium Chloride 0.9% 100 ML IVPB SCH (18:35)
[2024-09-24 20:33] LABS: Potassium 3.4 mmol/L (3.5-5.1)
[2024-09-24 20:40] LABS: Lactic Acid 3.21 mmol/L (0.50-2.20)
[2024-09-24] MEDS: Famotidine 20 MG TAB PO SCH (20:51)
[2024-09-24] MEDS: Rosuvastatin 20 MG TAB PO SCH (20:51)
[2024-09-24] MEDS ORDERED: Lactated Ringer's 1,000 ML IV SCH (23:45)
[2024-09-25] MEDS: Metoprolol Tartrate 5 MG (5 mL) VIAL IVP SCH (00:57)
[2024-09-25 05:35] LABS: Magnesium 1.7 mg/dL (1.6-2.6); Potassium 3.6 mmol/L (3.5-5.1)
[2024-09-25] MEDS: Insulin Regular, Human 100 UNIT/ML 10 ML VIAL SC PRN (06:18)
[2024-09-25 08:32] LABS: ALT (SGPT) 50 U/L (Less than 45); AST (SGOT) 97 U/L (11-34); Albumin 2.6 g/dL (3.1-4.5); Alkaline Phosphatase 53 U/L (40-110); Anion Gap 27 mmol/L (10-20); BUN (Urea Nitrogen) 21 mg/dL (8.4-25.7); Bilirubin, Total 0.8 mg/dL (0.3-1.2); Calc. Creatinine Clearance 55 mL/min (70-130); Calcium 8.2 mg/dL (7.8-10.44); Carbon Dioxide 14 mmol/L (23-31); Chloride 113 mmol/L (98-107); Estimated GFR 80; Globulin 3.6 g/dL (2.4-3.5); Glucose 255 mg/dL (83-110); Potassium 3.5 mmol/L (3.5-5.1); Protein, Total 6.2 g/dL (5.8-8.1); Sodium 150 mmol/L (136-145)
[2024-09-25] MEDS ORDERED: DIVALPROEX SODIUM 125 MG PO SCH (09:00)
[2024-09-25] MEDS ORDERED: Acidophilus Lactiobac CAPSULE PO SCH (09:00)
[2024-09-25] MEDS ORDERED: Non-Formulary Item 1 EACH (Fluoxetine Hcl [Fluoxetine Hcl] 20 MG Tablet) PO SCH (09:00)
[2024-09-25 09:10] LABS: Hematocrit 27.2 % (42.0-52.0); Hemoglobin 8.7 g/dL (14.0-18.0); Mean Corpuscular Hemoglobin 30.7 pg (27.0-31.0); Mean Corpuscular Volume 96.1 fL (78.0-98.0); Mean Platelet Volume 11.2 fL (7.4-10.4); Platelet Count 142 10x3/uL (130-400); Red Blood Cell (RBC) Count 2.83 mill/uL (4.70-6.10)
[2024-09-25 09:37] VITALS: BMI 18.1
[2024-09-25] MEDS: Aspirin Chewable 81 MG TAB PO SCH (09:57)
[2024-09-25] MEDS: Potassium Chloride 20 MEQ TAB PO SCH (09:57)
[2024-09-25] MEDS: Divalproex Sodium 125 mg Sprinkle Capsule PO SCH (09:58)
[2024-09-25] MEDS: FLUoxetine HCl 20 MG CAP PO SCH (09:58)
[2024-09-25] MEDS: Magnesium 2 GM/50 ML(in water) 2 GM in Premix 1 BAG IVPB SCH ×2 (09:58→20:05)
[2024-09-25 10:31] LABS: Anisocytosis SLIGHT = 6-15 cells HPF (0-5); Band 2 % (5-11); Burr Cells MODERATE= 6-15 cells HPF (0-1); Large Platelets 12.9 % (0-5); Lymphocytes 6 % (21-51); Macrocytosis SLIGHT = 6-15 cells HPF (0-5); Monocytes 5 % (0-10); Neutrophil 87 % (42-75); Nucleated RBC (Manual Ct) 5 % (0); Platelet Adequacy Comment Platelets Normal; Poikilocytosis SLIGHT = 6-15 cells HPF (0-5); Polychromasia SLIGHT = 2-3 cells HPF (0-2); Schistocytes SLIGHT = 2-5 cells HPF (0-1)
[2024-09-25] MEDS: Sodium Chloride 0.9% 500 ML IV SCH (11:19)
[2024-09-25] MEDS: Lactated Ringer's 1,000 ML IV SCH (12:12)
[2024-09-25] MEDS ORDERED: Electrolyte Replacement Protocol FS PRN (12:15)
[2024-09-25] MEDS: Potassium Chloride 20 MEQ in Lactated Ringer's 1,000 ML IV SCH (13:23)
[2024-09-25] MEDS: Acidophilus Lactiobac CAPSULE PO SCH (13:27)
[2024-09-25 14:26] VITALS: BP 77/53
[2024-09-25] MEDS: NOREPINEPHRINE 8 MG/250 ML-D5W 250 ML IVPB SCH (14:36)
[2024-09-25 17:03] LABS: Hematocrit 23.2 % (42.0-52.0); Hemoglobin 7.4 g/dL (14.0-18.0); Mean Corpuscular HGB CONC 31.9 g/dL (32.0-36.0); Mean Corpuscular Hemoglobin 31.5 pg (27.0-31.0); Mean Corpuscular Volume 98.7 fL (78.0-98.0); Mean Platelet Volume 11.2 fL (7.4-10.4); Platelet Count 150 10x3/uL (130-400); RBC Distribution Width 14.4 % (11.5-14.5); Red Blood Cell (RBC) Count 2.35 mill/uL (4.70-6.10)
[2024-09-25 17:22] LABS: Band 8 % (5-11); Burr Cells MARKED = >16 cells HPF (0-1); Eosinophils 3 % (0-10); Large Platelets 11.5 % (0-5); Lymphocytes 10 % (21-51); Monocytes 4 % (0-10); Neutrophil 74 % (42-75); Nucleated RBC (Manual Ct) 3 % (0); Platelet Adequacy Comment Platelets Normal; Polychromasia SLIGHT = 2-3 cells HPF (0-2)
[2024-09-25 17:59] LABS: Anion Gap 30 mmol/L (10-20); BUN (Urea Nitrogen) 21 mg/dL (8.4-25.7); Calc. Creatinine Clearance 57 mL/min (70-130); Calcium 7.7 mg/dL (7.8-10.44); Carbon Dioxide 8 mmol/L (23-31); Chloride 118 mmol/L (98-107); Estimated GFR 83; Glucose 244 mg/dL (83-110); Potassium 3.8 mmol/L (3.5-5.1); Sodium 152 mmol/L (136-145)
[2024-09-25 17:59] LABS: Anion Gap 31 mmol/L (10-20); BUN (Urea Nitrogen) 20 mg/dL (8.4-25.7); Calc. Creatinine Clearance 59 mL/min (70-130); Calcium 8.1 mg/dL (7.8-10.44); Carbon Dioxide Less than 8 mmol/L (23-31); Chloride 119 mmol/L (98-107); Estimated GFR 87; Glucose 233 mg/dL (83-110); Lactic Acid 10.69 mmol/L (0.50-2.20); Potassium 3.8 mmol/L (3.5-5.1); Sodium 151 mmol/L (136-145)
[2024-09-25] MEDS: SODIUM BICARBONATE IV SCH (20:06)
[2024-09-25] MEDS: Electrolyte Replacement Protocol 1 EACH FS ONE (20:06)
[2024-09-25] MEDS: DEXTROSE 5% IV SCH (20:06)
[2024-09-26] MEDS: Sodium Bicarb 50 MEQ/50 ML Abboject 8.4% SYRINGE IVP SCH ×3 (00:18→08:20)
[2024-09-26] MEDS: Lactated Ringer's 1,000 ML IV SCH (00:20)
[2024-09-26] MEDS: Sodium Bicarb 50 MEQ/50 ML Abboject 8.4% SYRINGE ONE (05:20)
[2024-09-26 06:46] LABS: Anion Gap 34 mmol/L (10-20); BUN (Urea Nitrogen) 25 mg/dL (8.4-25.7); Calc. Creatinine Clearance 50 mL/min (70-130); Calcium 7.8 mg/dL (7.8-10.44); Carbon Dioxide 10 mmol/L (23-31); Chloride 114 mmol/L (98-107); Estimated GFR 70; Glucose 217 mg/dL (83-110); Magnesium 2.2 mg/dL (1.6-2.6); Potassium 3.5 mmol/L (3.5-5.1); Sodium 154 mmol/L (136-145)
[2024-09-26 06:58] LABS: Lactic Acid 14.15 mmol/L (0.50-2.20)
[2024-09-26 07:47] LABS: Anisocytosis MODERATE=16-30 cells HPF (0-5); Band 13 % (5-11); Burr Cells MODERATE= 6-15 cells HPF (0-1); Large Platelets 6.9 % (0-5); Lymphocytes 4 % (21-51); Monocytes 3 % (0-10); Neutrophil 80 % (42-75); Nucleated RBC (Manual Ct) 8 % (0); Platelet Adequacy Comment Platelets Decreased; Poikilocytosis MARKED = >30 cells HPF (0-5); Polychromasia SLIGHT = 2-3 cells HPF (0-2); Schistocytes SLIGHT = 2-5 cells HPF (0-1)
[2024-09-26] MEDS ORDERED: Potassium Chloride 20 MEQ TAB PO SCH (08:00)
[2024-09-26 08:18] LABS: Hemoglobin 8.9 g/dL (14.0-18.0); Mean Corpuscular Volume 94.1 fL (78.0-98.0); Mean Platelet Volume 11.9 fL (7.4-10.4); Platelet Count 112 10x3/uL (130-400); RBC Distribution Width 14.2 % (11.5-14.5); Red Blood Cell (RBC) Count 2.87 mill/uL (4.70-6.10)
[2024-09-26 08:43] LABS: ALT (SGPT) 784 U/L (Less than 45); AST (SGOT) 1648 U/L (11-34); Albumin 2.3 g/dL (3.1-4.5); Alkaline Phosphatase 61 U/L (40-110); Globulin 2.6 g/dL (2.4-3.5); Protein, Total 4.9 g/dL (5.8-8.1)
[2024-09-26] MEDS: Potassium Chloride 40 MEQ in Premix 1 BAG IVPB SCH (09:01)
[2024-09-26] MEDS: Sodium Bicarbonate 150 MEQ in Dextrose 5% in Water 1,000 ML IV SCH (09:01)
[2024-09-26 12:03] LABS: Bilirubin Moderate (Negative); Blood, Urine Large (Negative); Glucose, Urine (Dipstick) 100 mg/dL (Negative); Ketone, Urine 40 mg/dL (Negative); Leukocyte Trace (Negative); Nitrite Positive (Negative); Protein, Urine (Dipstick) 100 mg/dL (Neg-Trace); Specific Gravity, Urine 1.025 (1.005-1.030); pH, Urine 6.5 (5.0-9.0)
[2024-09-26 12:14] LABS: Clarity Extra Turbid (Clear)
[2024-09-26 12:16] LABS: Potassium 3.9 mmol/L (3.5-5.1)
[2024-09-26 12:20] LABS: Bacteria/HPF 3+ HPF (None Seen); CAUTI Indications for Culture Alt mental st,lethar; Squamous Epithelial None Seen HPF (0-3)
[2024-09-26 12:21] LABS: Calcium Oxalate Crystals 1+ HPF (None Seen)
[2024-09-26 12:22] LABS: Urine Culture Reflex Yes Yes
[2024-09-26] MEDS: Ketorolac Tromethamine 30 MG (1 mL) VIAL IVP PRN (18:49)
[2024-09-26 19:09] LABS: Lactic Acid 17.74 mmol/L (0.50-2.20)
[2024-09-26] MEDS: Morphine 2 MG/ML VIAL SLOW IVP PRN (21:22)
[2024-09-27 05:09] LABS: Hematocrit 25.6 % (42.0-52.0); Hemoglobin 8.5 g/dL (14.0-18.0); Mean Corpuscular HGB CONC 33.2 g/dL (32.0-36.0); Mean Corpuscular Hemoglobin 29.9 pg (27.0-31.0); Mean Corpuscular Volume 90.1 fL (78.0-98.0); Mean Platelet Volume 12.2 fL (7.4-10.4); Platelet Count 57 10x3/uL (130-400); Red Blood Cell (RBC) Count 2.84 mill/uL (4.70-6.10)
[2024-09-27 05:39] LABS: Band 14 % (5-11); Burr Cells SLIGHT = 2-5 cells HPF (0-1); Large Platelets 5.6 % (0-5); Lymphocytes 3 % (21-51); Monocytes 7 % (0-10); Neutrophil 76 % (42-75); Nucleated RBC (Manual Ct) 7 % (0); Platelet Adequacy Comment Platelets Decreased; Polychromasia SLIGHT = 2-3 cells HPF (0-2); Smudge Cells 19.4 %
[2024-09-27 06:04] LABS: Anion Gap 35 mmol/L (10-20); BUN (Urea Nitrogen) 26 mg/dL (8.4-25.7); Calc. Creatinine Clearance 35 mL/min (70-130); Calcium 7.6 mg/dL (7.8-10.44); Carbon Dioxide 14 mmol/L (23-31); Chloride 106 mmol/L (98-107); Estimated GFR 47; Glucose 270 mg/dL (83-110); Potassium 3.4 mmol/L (3.5-5.1); Sodium 152 mmol/L (136-145)
[2024-09-27] MEDS: Potassium Chloride 20 MEQ in Premix 1 BAG IVPB SCH (07:50)
[2024-09-27] MEDS ORDERED: Vasopressin 20 UNITS in Sodium Chloride 0.9% 50 ML IV SCH (11:00)
[2024-09-27] MEDS: Vasopressin In 0.9 % NaCl 40 UNIT in Premix 1 BAG IV SCH (11:25)
[2024-09-27 11:43] LABS: ALT (SGPT) 1702 U/L (Less than 45); AST (SGOT) Greater than 4001 U/L (11-34); Albumin 2.2 g/dL (3.1-4.5); Alkaline Phosphatase 88 U/L (40-110); Anion Gap 35 mmol/L (10-20); BUN (Urea Nitrogen) 25 mg/dL (8.4-25.7); Bilirubin, Total 1.2 mg/dL (0.3-1.2); Calc. Creatinine Clearance 32 mL/min (70-130); Calcium 7.5 mg/dL (7.8-10.44); Carbon Dioxide 14 mmol/L (23-31); Chloride 106 mmol/L (98-107); Estimated GFR 42; Globulin 2.3 g/dL (2.4-3.5); Glucose 259 mg/dL (83-110); Potassium 3.4 mmol/L (3.5-5.1); Protein, Total 4.5 g/dL (5.8-8.1); Sodium 152 mmol/L (136-145)
[2024-09-27 12:21] LABS: Lactic Acid 19.24 mmol/L (0.50-2.20)
[2024-09-27] MEDS: SODIUM BICARBONATE IV SCH (12:47)
[2024-09-27] MEDS: WATER IV SCH (12:47)
[2024-09-27] MEDS: DEXTROSE 5% IV SCH (12:47)
[2024-09-27] MEDS: Insulin Regular, Human 100 UNIT/ML 10 ML VIAL SC PRN (14:59)
[2024-09-27 15:52] LABS: Potassium 3.6 mmol/L (3.5-5.1)
[2024-09-27] MEDS: Famotidine/PF 20 mg/2ml Vial SLOW IVP SCH (21:06)
[2024-09-27] MEDS: Famotidine 20 MG TAB PO SCH (21:29)
[2024-09-28 04:28] LABS: Hematocrit 23.5 % (42.0-52.0); Hemoglobin 7.3 g/dL (14.0-18.0); Mean Corpuscular HGB CONC 31.1 g/dL (32.0-36.0); Mean Corpuscular Hemoglobin 30.2 pg (27.0-31.0); Mean Corpuscular Volume 97.1 fL (78.0-98.0); Mean Platelet Volume 12.3 fL (7.4-10.4); Platelet Count 34 10x3/uL (130-400); RBC Distribution Width 16.2 % (11.5-14.5); Red Blood Cell (RBC) Count 2.42 mill/uL (4.70-6.10)
[2024-09-28 04:29] LABS: ALT (SGPT) 1620 U/L (Less than 45); AST (SGOT) 3249 U/L (11-34); Albumin 1.9 g/dL (3.1-4.5); Alkaline Phosphatase 113 U/L (40-110); Anion Gap 48 mmol/L (10-20); BUN (Urea Nitrogen) 27 mg/dL (8.4-25.7); Bilirubin, Total 1.5 mg/dL (0.3-1.2); Calc. Creatinine Clearance 30 mL/min (70-130); Calcium 7.4 mg/dL (7.8-10.44); Carbon Dioxide 11 mmol/L (23-31); Chloride 98 mmol/L (98-107); Estimated GFR 38; Globulin 2.3 g/dL (2.4-3.5); Glucose 191 mg/dL (83-110); Potassium 3.5 mmol/L (3.5-5.1); Protein, Total 4.2 g/dL (5.8-8.1); Sodium 153 mmol/L (136-145)
[2024-09-28 04:44] LABS: Lactic Acid 33.99 mmol/L (0.50-2.20)
[2024-09-28 05:02] LABS: Band 38 % (5-11); Hypochromia SLIGHT = 6-15 cells HPF (0-5); Large Platelets 4.2 % (0-5); Lymphocytes 3 % (21-51); Metamyelocyte 1 % (0-0); Monocytes 2 % (0-10); Neutrophil 57 % (42-75); Nucleated RBC (Manual Ct) 29 % (0); Platelet Adequacy Comment Platelets Decreased; Polychromasia SLIGHT = 2-3 cells HPF (0-2)
[2024-09-28 05:03] LABS: #Basophils 0.03 10x3/uL (0.0-0.2); #Eosinophils Less than 0.03 10x3/uL (0.0-0.7); %Basophils 0.3 % (0.0-1.0); %Eosinophils 0.1 % (0.0-10.0); %Lymphocytes 0.1 % (21.0-51.0); %Neutrophils 78.4 % (42.0-75.0)
[2024-09-28] MEDS: Potassium Chloride 20 MEQ in Premix 1 BAG IVPB SCH (06:07)
[2024-09-28 08:56] VITALS: TEMP 96
[2024-09-28] MEDS ORDERED: Lorazepam 2 MG/ML VIAL SLOW IVP PRN (09:46)
[2024-09-28] MEDS: Morphine 2 MG/ML VIAL SLOW IVP PRN (10:04)
== END 2024-09-28 11:55 | disposition home or self-care (01) | DRG 853 ==
LOC: ERS 17:20 → ERHOLD 22:21 → 2NO 09-24 16:19 → CCU 09-25 14:09
PROVIDERS: ADMIT Hospitalist; ATTEND Internal Medicine
PROC: 3E03329 Introduction of Other Anti-infective into Peripheral Vein, Percutaneous Approach (ICD-10-PCS; 2024-09-23)
PROC: 0FT44ZZ Resection of Gallbladder, Percutaneous Endoscopic Approach (ICD-10-PCS; principal; 2024-09-24)
PROC: 3E033XZ Introduction of Vasopressor into Peripheral Vein, Percutaneous Approach (ICD-10-PCS; 2024-09-24)
PROC: 06HY33Z Insertion of Infusion Device into Lower Vein, Percutaneous Approach (ICD-10-PCS; 2024-09-26)
PROC: 3E03329 Introduction of Other Anti-infective into Peripheral Vein, Percutaneous Approach (ICD-10-PCS; 2024-09-26)
PROC: 30233N1 Transfusion of Nonautologous Red Blood Cells into Peripheral Vein, Percutaneous Approach (ICD-10-PCS; 2024-09-26)
DX: A41.9 Sepsis, unspecified organism (principal); G93.41 Metabolic encephalopathy; R65.21 Severe sepsis with septic shock; K72.00 Acute and subacute hepatic failure without coma; E87.20 Acidosis, unspecified; K81.0 Acute cholecystitis; E87.1 Hypo-osmolality and hyponatremia; E87.0 Hyperosmolality and hypernatremia; Z66 Do not resuscitate; Z51.5 Encounter for palliative care; E78.5 Hyperlipidemia, unspecified; E11.22 Type 2 diabetes mellitus with diabetic chronic kidney disease; K82.A1 Gangrene of gallbladder in cholecystitis; H40.9 Unspecified glaucoma; F01.50 Vascular dementia, unspecified severity, without behavioral disturbance, psychotic disturbance, mood disturbance, and anxiety; D63.1 Anemia in chronic kidney disease; I12.9 Hypertensive chronic kidney disease with stage 1 through stage 4 chronic kidney disease, or unspecified chronic kidney disease; N18.9 Chronic kidney disease, unspecified; K59.00 Constipation, unspecified; Z88.0 Allergy status to penicillin
CPT/HCPCS: 36415; 36416; 36430; 71045; 74018; 74177; 76705; 80048; 80053; 81001; 83605; 83735; 83880; 84132; 84443; 84484; 85025; 85610; 85730; 86850; 86900; 86901; 87040; 87086; 88304; 93005; 93010; 94760; 96365; 96366; 96367; 96375; C1889; J0171; J0665; J0690; J0692; J1100; J1650; J1815; J1885; J2272; J2405; J2704; J3370; J3475; J3480; J3490; J7030; J7070; J7120; P9016; Q9967